=== PATIENT | male | born 1980 | race Caucasian/White ===

== ENCOUNTER → 2018-08-16 | Outpatient (CLI) | payer BC | LOC: LABPAT 10:59 | PROVIDERS: ATTEND Orthopaedic Surgery | DX: Z01.812 Encounter for preprocedural laboratory examination (principal) | CPT/HCPCS: 86850; 86900; 86901; 87070 ==

== ENCOUNTER 2018-08-23 07:30 | Inpatient (IN) | payer BC ==
[2018-08-18 09:29] VITALS: BMI 43.4
--- NOTE | 2018-08-22 17:05 | HP ---
HISTORY AND PHYSICAL SURGERY: 08/23/2018 Edgard Ulloa is a 37-year-old patient seen with symptomatic left hip osteoarthritis. After treatment options were discussed with him, he elected to proceed with left total hip arthroplasty. Consent regarding the procedure was obtained. Medical clearance was provided by Dr. Bojorquez. PAST MEDICAL HISTORY: Hypertension, zie-lxrpobw-vekoypqly diabetes. PAST SURGICAL HISTORY: Left hip arthroscopy. MEDICATIONS: Glipizide, lisinopril, ibuprofen. ALLERGIES: None. SOCIAL HISTORY: The patient denies current tobacco use. PHYSICAL EXAMINATION: Evaluation of the left hip: He has very limited range of motion with severe pain. Positive hip impingement sign. Straight leg raise negative. Distal neurovascular exam is intact. RADIOGRAPHS: Radiographs of the left hip reveal severe osteoarthritic changes. IMPRESSION: 1. Left hip osteoarthritis. 2. Hypertension. 3. Tzr-nunixrd-vdkcvptxy diabetes. PLAN: Direct anterior left total hip arthroplasty. MMODL / IJN: [id number] /
[~2018-08-23 07:30] MED LIST: ACETAMINOPHEN TAB 500 MG TAB PO ONE; DEXAMETHASONE SOD PHOSPHATE 10 MG/ML 1 ML VIAL IV ONE; HYDROmorphone 1 MG/ML 1 ML SYRINGE IVP PRN; MELOXICAM 7.5 MG TAB PO ONE; MIDAZOLAM 2 MG/2 ML VIAL IV PRN; ONDANSETRON 4 MG/2 ML VIAL IVP ONE; SCOPOLAMINE 1.5MG/72HR PATCH TRANSDERM ONE; TRANEXAMIC ACID 1,000 MG in SODIUM CHLORIDE 0.9% 50 ML IVPB ONE
[2018-08-23 08:49] LABS: Glucose,Whole Blood 109 mg/dL (75-99)
[2018-08-23] MEDS ORDERED: LIDOCAINE 1% 20 ML VIAL (10MG/ML) FOR IV START INTRADERMA ONE (08:50)
[2018-08-23] MEDS: LACTATED RINGERS 1,000 ML IV SCH ×2 (08:50→14:47)
[2018-08-23] MEDS ORDERED: ROPIVACAINE 246.25 MG, EPINEPHrine 0.5 MG, KETOROLAC 30 MG, cloNIDine HCL/PF 80 MCG, WA... MISCELLANE ONE ×5 (09:43)
[2018-08-23] MEDS ORDERED: SODIUM CHLORIDE 0.9% 100 ML BAG ONE (09:51)
[2018-08-23] MEDS ORDERED: fentaNYL (PF) 50 MCG/ML 2 ML AMP ONE (09:51)
[2018-08-23] MEDS ORDERED: TRANEXAMIC ACID 1,000 MG/10 ML VIAL ONE (09:51)
[2018-08-23] MEDS ORDERED: MIDAZOLAM 2 MG/2 ML VIAL ONE (09:51)
[2018-08-23] MEDS ORDERED: ceFAZolin 3,000 MG in SODIUM CHLORIDE 0.9% IRRIGATIO 3,000 ML IRRIGATION ONE (10:35)
[2018-08-23] MEDS ORDERED: LACTATED RINGERS 1,000 ML IV ONE (10:58)
[2018-08-23] MEDS ORDERED: HYDROmorphone 1 MG/ML 1 ML SYRINGE IVP PRN ×2 (12:13)
[2018-08-23] MEDS ORDERED: ONDANSETRON 4 MG/2 ML VIAL IVP PRN (12:13)
[2018-08-23] MEDS ORDERED: traMADol 50 MG TAB PO PRN (12:13)
[2018-08-23] MEDS ORDERED: HYDROcodone/APAP 7.5-325MG 1 EACH TAB PO PRN (12:13)
[2018-08-23] MEDS ORDERED: NALOXONE 0.4 MG/ML 1 ML VIAL IV PRN (12:13)
--- NOTE | 2018-08-23 12:13 | P.OP ---
Date of Procedure: 08/23/18 Preoperative Diagnosis: Left hip osteoarthritis Postoperative Diagnosis: Left hip osteoarthritis Procedure(s) Performed: Direct anterior left total hip arthroplasty Implants: 1. Depuy Corail KA size 12 with collar press-fit femoral stem 2. Depuy pinnacle 60 mm press-fit acetabular shell 3. Depuy pinnacle polyethylene acetabular liner 60 mm OD 36 mm ID neutral 4. Biolox delta ceramic femoral head 36 mm +5 Anesthesia: local, spinal Surgeon: Bruce Baltazar Rn Lactation Consultant #1: Jerman Valenzuela Estimated Blood Loss (ml): 300 Pathology: other (Femoral head) Condition: stable Disposition: PACU Indications for Procedure: 37-year-old patient seen with symptomatic left hip osteoarthritis. After treatment options were discussed, he elected to proceed with total hip arthroplasty. Operative Findings: See description of procedure Description of Procedure: The patient was taken to the operative suite. Patient underwent a spinal anesthetic by the department of anesthesia. Patient was then transferred to the Stanley table. Patient was given preoperative IV antibiotics and TXA. Both lower extremities were placed in standard leg spars. The hip was then prepped and draped in the normal sterile orthopedic fashion. A standard anterior incision was made beginning 3 cm lateral and 1 cm distal to the ASIS extending 10 cm. Dissection was then carried down through the subcutaneous soft tissues down to the fascia overlying the tensor fascia jhon. An incision was now made through the fascia. Careful dissection was taken down exposing the tensor fascia jhon muscle. A Cobra retractor was now placed along the medial femoral neck and a second one along the lateral femoral neck. The venous circumflex vessels were now identified, cauterized and clipped. We identified the anterior hip capsule. An incision was made through the hip capsule along the lateral border. I performed a partial anterior capsulectomy. Retractors were now placed around the femoral neck itself. A femoral neck cut was now made with a sagittal saw. It was completed with an osteotome at the lateral neck area. The femoral head was now removed without difficulty. The extremity was now rotated to 45 of external rotation. It was locked in position. Residual labrum was now debrided out. Serial reaming was performed of the acetabulum while Donn GRANADOS assisted holding an anterior retractor for exposure. Once we reached the appropriate size and a trial was position and fit nicely. The appropriate size was now chosen opened and made available. It was introduced into the acetabulum without difficulty. The C-arm/fluoroscopy was now brought into the operative field. We made sure we had a true AP pelvic view. We now under direct C-arm/fluoroscopy introduced into the acetabular component with appropriate version and inclination. I held the cup in appropriate position well Donn GRANADOS used a mallet to seat the acetabular component. I noted the component now to be well seated and stable. Acetabular cup introducer was removed. The C-arm was pulled back. An appropriate liner was introduced and clicked into position. It was felt to be stable. At this point retractors were removed. The extremity was now placed into 120 external rotation with no traction. The leg was now dropped to the ground and adducted. Appropriate retractors were now positioned along the proximal femur. We also placed our femoral look into position. Additional capsular releasing was performed to gain access to the proximal femur. We now used a box osteotome. A canal finder was now utilized. Serial broaching was now performed with the assistance of Donn GRANADOS tapping the broaches down with a mallet while held the broach in appropriate rotation and position. This was done until we reached the appropriate size with good overall rotational stability. Appropriate calcar planing was performed. A trial head/neck was placed into position. The hip was now reduced. The C-arm/fluoroscopy was brought back into the operative field. A spot film was obtained of the nonoperative hip. A spot film was obtained of the trial components. Overlays were performed, we noted good overall alignment and positioning for determining leg length. The C- arm/fluoroscopy was pulled back. Retractors were repositioned and the hip was dislocated. The leg was again taken down to the ground and adducted. Appropriate retractors were repositioned as well as the femoral hook. All trial components were removed. The femoral implant was opened along with the femoral head. The femoral implant was introduced on the appropriate handle into our pre-broached area. I held the component position well Donn GRANADOS used a mallet to seat the femoral component. The femoral component was now noted to be well seated and stable.. The femoral head was introduced with good positioning and fixation noted. Retractors were now removed. The hip was now reduced. There appeared be good positioning of the hip confirmed on intraoperative fluoroscopy. Spot films were obtained to document this. A second gram of TXA was given. The deep and superficial soft tissues were infiltrated with local analgesic. Bipolar cautery had been utilized intermittently through the procedure for hemostasis. The wound was irrigated copiously with pulse lavage mechanical irrigation. The fascia was repaired with Vicryl suture. The subcutaneous soft tissues were repaired in layers with Vicryl suture. The skin was approximated with pernio/Dermabond. Sterile dressings were applied. Patient was then awakened, transferred to a bed and taken to recovery in stable condition. Donn GRANADOS assisted with the complex procedure.
[2018-08-23 13:35] LABS: Glucose,Whole Blood 162 mg/dL (75-99)
--- NOTE | 2018-08-23 14:18 | P.CONS ---
History of Present Illness - Reason for Consult Consult date: 08/23/18 Medical management Requesting physician: Bruce Baltazar - Chief Complaint Left hip total arthroplasty - History of Present Illness This is a 37-year-old male, patient of Dr. Bojorquez. He has a known past medical history of diabetes, hypertension, arthritis or arthritis and acid reflux. Patient presents to the hospital for an elective left total hip arthroplasty. He tolerated surgery well no complications reported. Estimated blood loss 300 mL. We will been consulted for medical management. Patient lying in bed comfortably. Denies any chest pain or shortness of breath. Denies any nausea or vomiting. Denies any bowel movement changes or urinary symptoms. Denies any fever or chills or sweats. He is complaining of some left hip pain and is due for pain medication. Review of Systems Please refer to HPI otherwise unremarkable Past Medical History Past Medical History: Diabetes Mellitus, GERD/Reflux, Hyperlipidemia, Osteoarthritis (OA), Sleep Apnea/CPAP/BIPAP Additional Past Medical History / Comment(s): Hx. 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, doesn't use anything for sleep apnea History of Any Multi-Drug Resistant Organisms: None Reported Past Surgical History: Orthopedic Surgery Additional Past Surgical History / Comment(s): vasectomy ,rt achilles tendon repair, arthroscopy left hip Past Anesthesia/Blood Transfusion Reactions: Motion Sickness Additional Past Anesthesia/Blood Transfusion Reaction / Comm: no hx blood transfusion Smoking Status: Former smoker - Past Family History Mother Family Medical History: No Reported History Father Family Medical History: No Reported History Medications and Allergies Home Medications Medication Instructions Recorded Confirmed Type DULoxetine HCL [Cymbalta] 20 mg PO HS 08/18/18 08/23/18 History Ibuprofen [Motrin] 800 mg PO Q6H PRN 08/18/18 08/23/18 History Insulin Degludec/Liraglutide 26 unit SQ QAM 08/18/18 08/23/18 History [Xultophy 100 Unit-3.6MG/ml Pen] Lisinopril [Zestril] 10 mg PO DAILY 08/18/18 08/23/18 History Omeprazole [PriLOSEC] 20 mg PO AC-BRKFST PRN 08/18/18 08/23/18 History Simvastatin [Zocor] 20 mg PO HS 08/18/18 08/23/18 History glipiZIDE [Glucotrol] 5 mg PO AC-BID 08/18/18 08/23/18 History Allergies Allergy/AdvReac Type Severity Reaction Status Date / Time No Known Allergies Allergy Verified 08/23/18 13:26 Physical Exam Vitals: Vital Signs Temp Pulse Pulse Resp BP Pulse Ox 08/23/18 13:30 62 18 119/60 94 L 08/23/18 13:15 57 L 16 118/59 98 08/23/18 13:00 62 18 114/69 94 L 08/23/18 12:45 70 18 115/62 93 L 08/23/18 12:32 97.7 F 63 18 125/67 97 08/23/18 08:29 97.4 F L 71 16 127/74 98 Intake and Output 08/22/18 08/23/18 08/23/18 22:59 06:59 14:59 Intake Total 1601 Output Total 300 Balance 1301 Intake: IV 1601 Output: Estimated Blood Loss 300 Head normocephalic Neck supple Lungs clear to auscultation bilaterally no wheezing or crackles Heart regular rate and rhythm S1-S2, no rub or gallop Abdomen is soft nontender nondistended positive bowel sounds no hepatosplenomegaly Extremities no edema. Left hip dressing clean dry and intact. Ice pack in place BRADY hose and SCDs Neuro alert and orientated to 3 Results Labs: Abnormal Lab Results - Last 24 Hours (Table) 08/23/18 08/23/18 Range/Units 08:45 13:32 POC Glucose (mg/dL) 109 H 162 H (75-99) mg/dL Assessment and Plan Assessment: 1. Left hip osteoarthritis status post direct anterior left total hip arthroplasty. Estimated bolus 300 mL. Continue pain medication for PE protocol. Patient currently on Lovenox for DVT prophylaxis 2. Diabetes mellitus type 2: Continue glipizide. Resume xultophy. This is a nonformulary medication. Patient can't bring from home. We'll add NovoLog sliding scale coverage. Check A1c 3. Essential hypertension: Continue lisinopril 10 mg daily hold for systolic blood pressure less than 120 4. GERD: Continue Pepcid Thank you for this consultation. We will continue to follow along during patient's hospitalization. Check routine labs in the morning CBC and CMP Time with Patient: Greater than 30 (Greater than 60% of the total time spent in counseling and coordination of care.I performed an examination of the patient and discussed their management with the physician Stockroom Keeper. I have reviewed the Physician Stockroom Keeper's notes and agree with the documented findings and plan of care)
[2018-08-23] MEDS: HYDROcodone/APAP 7.5-325MG 1 EACH TAB PO PRN ×2 (14:20→21:04)
[2018-08-23] MEDS: HYDROmorphone 1 MG/ML 1 ML SYRINGE IVP PRN ×2 (15:07→18:36)
--- NOTE | 2018-08-23 15:45 | XR ---
EXAMINATION TYPE: XR Hip Limited LT, FL guidance operating room DATE OF EXAM: 08/23/2018 FINDINGS: Single frontal view showing appearance after left hip total arthroplasty. FLUOROSCOPY Fluoroscopy time of 38 seconds was used during anterior left hip replacement. 1 image/s document/s t he procedure. IMPRESSION: Intraoperative fluoroscopy as above.
[2018-08-23 17:32] LABS: Glucose,Whole Blood 181 mg/dL (75-99)
[2018-08-23] MEDS: INSULIN ASPART 100 UNIT/ML 1 ML 10 ML VIAL SQ SCH (17:43)
[2018-08-23] MEDS: glipiZIDE 5 MG TAB PO SCH (17:43)
[2018-08-23] MEDS ORDERED: ATORVASTATIN 10 MG TAB PO SCH (21:00)
[2018-08-23] MEDS ORDERED: DULoxetine HCL 20 MG CAPSULE.DR PO SCH (21:00)
[2018-08-24] MEDS: INSULIN ASPART 100 UNIT/ML 1 ML 10 ML VIAL SQ SCH ×3 (00:40→12:11)
[2018-08-24 00:45] LABS: Glucose,Whole Blood 122 mg/dL (75-99)
[2018-08-24] MEDS: LACTATED RINGERS 1,000 ML IV SCH ×3 (03:48→12:11)
[2018-08-24] MEDS: HYDROcodone/APAP 7.5-325MG 1 EACH TAB PO PRN ×3 (03:50→14:13)
[2018-08-24 07:43] LABS: Glucose,Whole Blood 140 mg/dL (75-99)
[2018-08-24] MEDS: glipiZIDE 5 MG TAB PO SCH (08:18)
[2018-08-24] MEDS ORDERED: [UNRECOGNIZED DRUG - OTHER] SQ SCH (09:00)
[2018-08-24] MEDS ORDERED: MELOXICAM 7.5 MG TAB PO SCH (09:00)
[2018-08-24] MEDS ORDERED: LIRAGLUTIDE SQ SCH (09:00)
[2018-08-24] MEDS ORDERED: LISINOPRIL 10 MG TAB PO SCH (09:00)
[2018-08-24] MEDS ORDERED: ENOXAPARIN 40 MG/0.4 ML SYRINGE SQ SCH (09:00)
[2018-08-24] MEDS ORDERED: FAMOTIDINE 20 MG TAB PO SCH (09:00)
[2018-08-24] MEDS ORDERED: INSULIN DEGLUDEC SQ SCH (09:00)
[2018-08-24 09:40] VITALS: TEMP 98
[2018-08-24 09:42] VITALS: BP 131/60; PULSE 76; RESP 16
[2018-08-24 10:30] LABS: Basophils % (A) 0 %; Eosinophils # (A) 0.1 k/uL (0-0.7); Eosinophils % (A) 1 %; HCT 36.5 % (39.0-53.0); HGB 12.3 gm/dL (13.0-17.5); Lymphocytes # (A) 1.6 k/uL (1.0-4.8); Lymphocytes % (A) 16 %; MCH 30.4 pg (25.0-35.0); MCHC 33.6 g/dL (31.0-37.0); MCV 90.4 fL (80.0-100.0); Mean Platelet Volume 6.7; Monocytes # (A) 0.7 k/uL (0-1.0); Monocytes % (A) 7 %; Neutrophils # (A) 7.3 k/uL (1.3-7.7); Neutrophils % (A) 74 %; Platelet Count 287 k/uL (150-450); RBC 4.04 m/uL (4.30-5.90); RDW 12.3 % (11.5-15.5); WBC 9.9 k/uL (3.8-10.6)
[2018-08-24 10:39] LABS: ALT 49 U/L (21-72); AST 34 U/L (17-59); Albumin 3.3 g/dL (3.5-5.0); Alkaline Phosphatase 26 U/L (38-126); Anion Gap 7 mmol/L; Blood Urea Nitrogen 12 mg/dL (9-20); Calcium 8.3 mg/dL (8.4-10.2); Carbon Dioxide 25 mmol/L (22-30); Chloride 105 mmol/L (98-107); Glucose 113 mg/dL (74-99); Potassium 4.3 mmol/L (3.5-5.1); Sodium 137 mmol/L (137-145); Total Bilirubin 0.6 mg/dL (0.2-1.3); Total Protein 5.8 g/dL (6.3-8.2)
[2018-08-24 12:03] LABS: Glucose,Whole Blood 109 mg/dL (75-99)
--- NOTE | 2018-08-24 12:33 | P.PN ---
Subjective Progress Note Date: 08/24/18 Principal diagnosis: Status post left total hip arthroplasty Patient is seen today resting in his hospital bed, he appears comfortable. Patient's ambulate well with physical therapy. He denies any chest pain or shortness breath. Objective - Vital Signs Vital signs: Vital Signs Temp 98.0 F 08/24/18 07:10 Pulse 76 08/24/18 07:10 Resp 16 08/24/18 07:10 BP 131/60 08/24/18 07:10 Pulse Ox 94 L 08/24/18 07:10 Intake & Output 08/23/18 08/24/18 08/24/18 18:59 06:59 18:59 Intake Total 1601 800 600 Output Total 300 900 Balance 1301 -100 600 Weight 145.15 kg Intake: IV 1601 Intake, IV Titration 800 Amount Lactated Ringers 1,000 ml 800 @ 80 mls/hr IV .[id number] YOON Rx#:[id number] Oral 600 Output: Urine 900 Estimated Blood Loss 300 Other: Voiding Method Toilet Toilet # Voids 2 - Exam Left lower extremity: Incision is clean, dry, and intact. The exofin fusion tape is in good condition. There is minimal soft tissue swelling and ecchymosis surrounding the medial and lateral aspects of the incision. Calf is soft, no tenderness with palpation. Plantar flexion, dorsiflexion, EHL, FHL are intact. Sensory exam to light touch throughout the extremity is intact, dorsal pedis pulses 2+. - Labs CBC & Chem 7: 08/24/18 07:47 08/24/18 07:47 Labs: Abnormal Lab Results - Last 24 Hours (Table) 08/23/18 08/23/18 08/24/18 Range/Units 13:32 17:28 00:33 RBC (4.30-5.90) m/uL Hgb (13.0-17.5) gm/dL Hct (39.0-53.0) % Glucose (74-99) mg/dL POC Glucose (mg/dL) 162 H 181 H 122 H (75-99) mg/dL Calcium (8.4-10.2) mg/dL Alkaline Phosphatase (38-126) U/L Total Protein (6.3-8.2) g/dL Albumin (3.5-5.0) g/dL 08/24/18 08/24/18 08/24/18 Range/Units 07:41 07:47 07:47 RBC 4.04 L (4.30-5.90) m/uL Hgb 12.3 L (13.0-17.5) gm/dL Hct 36.5 L (39.0-53.0) % Glucose 113 H (74-99) mg/dL POC Glucose (mg/dL) 140 H (75-99) mg/dL Calcium 8.3 L (8.4-10.2) mg/dL Alkaline Phosphatase 26 L (38-126) U/L Total Protein 5.8 L (6.3-8.2) g/dL Albumin 3.3 L (3.5-5.0) g/dL 08/24/18 Range/Units 12:01 RBC (4.30-5.90) m/uL Hgb (13.0-17.5) gm/dL Hct (39.0-53.0) % Glucose (74-99) mg/dL POC Glucose (mg/dL) 109 H (75-99) mg/dL Calcium (8.4-10.2) mg/dL Alkaline Phosphatase (38-126) U/L Total Protein (6.3-8.2) g/dL Albumin (3.5-5.0) g/dL Assessment and Plan Plan: Assessment: Postoperative day #1 status post left total hip arthroplasty Plan: Pain control, we'll discharge home on oral medications GI and DVT prophylaxis, aspirin 81 mg twice a day for 1 month Home physical therapy and nursing after discharge Wound care was discussed the patient at bedside Medical recommendations Discharge planning: Plan for discharge home today Time with Patient: Less than 30
--- NOTE | 2018-08-24 12:37 | P.DS ---
Providers Date of admission: 08/23/18 08:07 Expected date of discharge: 08/24/18 Attending physician: Bruce Baltazar Consults: 08/23/18 12:13 Consult Physician Routine Consulting Provider: Pablo Bojorquez Consult Reason/Comments: Medical management Do you want consulting provider notified?: Yes 08/23/18 12:57 Consult Physician Routine Consulting Provider: Paulina Bower Consult Reason/Comments: medical management Do you want consulting provider notified?: Yes Primary care physician: Nikki Bojorquez [facility] Course: Date of admission: 08/23/2018 Date of discharge: 08/24/2018 Admission diagnosis: Status post left total hip arthroplasty Discharge diagnosis: Same Attending physician: Dr. Baltazar Surgical procedures: Left total hip arthroplasty Brief history: Patient is a 37-year-old male with a history of progressive primary left hip osteoarthritis. At this point patient has failed conservative treatment measures and has opted to proceed with a elective left total hip arthroplasty. Hospital course: Details of patient's surgery can be found in operative report. Patient tolerated the procedure well and was subsequently transported to orthopedic floor. Patient's orthopeidc and medical care was provided daily. Patient had daily laboratory tests performed for evaluation of overall blood counts. Patient had daily physical therapy to include strengthening range of motion as well as education with walker ambulation. Patient was treated with Lovenox for their postoperative DVT prophylaxis during their inpatient stay. Patient was noted to have a relatively uneventful postoperative course. Patient reported satisfactory pain control with oral pain medications by postoperative day 0. Patient showed satisfactory progress with physical therapy. Patient moved steadily through the program and had no difficulty meeting the goals by postoperative day 1. Given patient's otherwise satisfactory course and having met physical therapy goals, plan is to discharge patient home on postoperative day 1. Discharge condition/disposition: Patient will be discharged home in stable condition. Discharge medications: Instructions are given on resumption of patient's normal daily medications per primary care recommendation, in addition patient will be prescribed [place] 7.5 mg/325 mg, tramadol 50 mg, Colace 100 mg, aspirin 81 mg. Discharge instructions: 1. Wound care and infection precautions, keep incision dry and covered while showering, no lotions, creams, moisturizers. No soaking, tubs, pools, hottubs. Do not scrub over the incision. 2. Weight-bear as tolerated with walker / cane until follow-up. 3. Ice and elevate when necessary. Do not exceed 20 minutes per hour with ice pack. 4. Utilize compression sleeve until seen at first follow up appointment. 5. Visiting nursing care. 6. Home physical therapy. 7. Pain meds and anticoagulants per prescription. 8. Pain medication has potential to cause constipation. Increase oral fluid and fiber intake. Contact primary care provider if you have not had a bowel movement within 48 hours after discharge 9. No anti-inflammatory medication until discussed at first post operative visit, this including Motrin, Aleve, Mobic, Diclofenac. 10. Follow up in office at 2 weeks postop with Donn Valenzuela PA-C 11. Follow up with your primary care doctor 7-10 days after discharge. 12. Contact [facility] with any questions, . Procedures: Left total hip arthroplasty Patient Condition at Discharge: Good Plan - Discharge Summary Discharge Rx Participant: No New Discharge Prescriptions: New Aspirin [Adult Low Dose Aspirin EC] 81 mg PO BID #60 tablet. Docusate [Colace] 100 mg PO DAILY #30 capsule HYDROcodone/APAP 7.5-325MG [[place] 7.5] 1 - 2 each PO Q6HR PRN #40 tab PRN Reason: Pain traMADol HCl [Ultram] 50 mg PO Q6H PRN #28 tab PRN Reason: Pain No Action Omeprazole [PriLOSEC] 20 mg PO AC-BRKFST PRN PRN Reason: Heartburn glipiZIDE [Glucotrol] 5 mg PO AC-BID Simvastatin [Zocor] 20 mg PO HS Lisinopril [Zestril] 10 mg PO DAILY DULoxetine HCL [Cymbalta] 20 mg PO HS Insulin Degludec/Liraglutide [Xultophy 100 Unit-3.6MG/ml Pen] 26 unit SQ QAM Ibuprofen [Motrin] 800 mg PO Q6H PRN PRN Reason: Pain Discharge Medication List DULoxetine HCL [Cymbalta] 20 mg PO HS 08/18/18 [History] Ibuprofen [Motrin] 800 mg PO Q6H PRN 08/18/18 [History] Insulin Degludec/Liraglutide [Xultophy 100 Unit-3.6MG/ml Pen] 26 unit SQ QAM [History] Lisinopril [Zestril] 10 mg PO DAILY 08/18/18 [History] Omeprazole [PriLOSEC] 20 mg PO AC-BRKFST PRN 08/18/18 [History] Simvastatin [Zocor] 20 mg PO HS 08/18/18 [History] glipiZIDE [Glucotrol] 5 mg PO AC-BID 08/18/18 [History] Aspirin [Adult Low Dose Aspirin EC] 81 mg PO BID #60 tablet.dr 08/24/18 [Rx] Docusate [Colace] 100 mg PO DAILY #30 capsule 08/24/18 [Rx] HYDROcodone/APAP 7.5-325MG [[place] 7.5] 1 - 2 each PO Q6HR PRN #40 tab 08/24/18 [ Rx] traMADol HCl [Ultram] 50 mg PO Q6H PRN #28 tab 08/24/18 [Rx] Follow up Appointment(s)/Referral(s): Nikki Bojorquez DO [Primary Care Provider] - 1 Week [facility], [NON-STAFF] - Jerman Valenzuela PAC [PHYSICIAN INTERNET MANAGER] - 09/08/18 1:50 pm Activity/Diet/Wound Care/Special Instructions: Orthopedic Discharge Instructions: 1. Wound care and infection precautions, keep incision dry and covered while showering, no lotions, creams, moisturizers. No soaking, pools, hot tubs. Do not scrub over incision. 2. Weight-bear as tolerated with walker / cane until follow-up. 3. Ice and elevate when necessary. Do not exceed 20 minutes per hour with ice pack. 4. Utilize compression sleeve until seen at first follow up appointment. 5. Pain meds and anticoagulants per prescription. 6. Pain medication has potential to cause constipation. Increase oral fluid and fiber intake. Contact primary care provider if you have not had a bowel movement within 48 hours after discharge. 7. No anti-inflammatory medication until discussed at first post operative visit, this including Motrin, Aleve, Mobic, Diclofenac. 8. Follow up in office at 2 weeks postop with Donn Valenzuela PA-C 9. Follow up with your primary care doctor 7-10 days after discharge. 10. Contact [facility] with any questions, . Discharge Disposition: HOME WITH HOME HEALTH SERVICES
--- NOTE | 2018-08-24 12:42 | P.PN ---
Subjective Progress Note Date: 08/24/18 This is a 37-year-old male, patient of Dr. Bojorquez. He has a known past medical history of diabetes, hypertension, arthritis or arthritis and acid reflux. Patient presents to the hospital for an elective left total hip arthroplasty. He tolerated surgery well no complications reported. Estimated blood loss 300 mL. We will been consulted for medical management. Patient lying in bed comfortably. Denies any chest pain or shortness of breath. Denies any nausea or vomiting. Denies any bowel movement changes or urinary symptoms. Denies any fever or chills or sweats. He is complaining of some left hip pain and is due for pain medication. 08/24/2018 patient's pain is controlled. He has been up and ambulating. They' re anticipating discharge later this afternoon. Denies any chest pain or shortness breath. Denies any nausea or vomiting. Denies any bowel movement changes or urinary symptoms. Objective - Vital Signs Vital signs: Vital Signs Temp 98.0 F 08/24/18 07:10 Pulse 76 08/24/18 07:10 Resp 16 08/24/18 07:10 BP 131/60 08/24/18 07:10 Pulse Ox 94 L 08/24/18 07:10 Intake & Output 08/23/18 08/24/18 08/24/18 18:59 06:59 18:59 Intake Total 1601 800 600 Output Total 300 900 Balance 1301 -100 600 Weight 145.15 kg Intake: IV 1601 Intake, IV Titration 800 Amount Lactated Ringers 1,000 ml 800 @ 80 mls/hr IV .[id number] [facility] Rx#:[id number] Oral 600 Output: Urine 900 Estimated Blood Loss 300 Other: Voiding Method Toilet Toilet # Voids 2 - Exam Head normocephalic Neck supple Lungs clear to auscultation bilaterally no wheezing or crackles Heart regular rate and rhythm S1-S2, no rub or gallop Abdomen is soft nontender nondistended positive bowel sounds no hepatosplenomegaly Extremities no edema Neuro alert and orientated to 3 - Labs CBC & Chem 7: 08/24/18 07:47 08/24/18 07:47 Labs: Abnormal Lab Results - Last 24 Hours (Table) 08/23/18 08/23/18 08/24/18 Range/Units 13:32 17:28 00:33 RBC (4.30-5.90) m/uL Hgb (13.0-17.5) gm/dL Hct (39.0-53.0) % Glucose (74-99) mg/dL POC Glucose (mg/dL) 162 H 181 H 122 H (75-99) mg/dL Calcium (8.4-10.2) mg/dL Alkaline Phosphatase (38-126) U/L Total Protein (6.3-8.2) g/dL Albumin (3.5-5.0) g/dL 08/24/18 08/24/18 08/24/18 Range/Units 07:41 07:47 07:47 RBC 4.04 L (4.30-5.90) m/uL Hgb 12.3 L (13.0-17.5) gm/dL Hct 36.5 L (39.0-53.0) % Glucose 113 H (74-99) mg/dL POC Glucose (mg/dL) 140 H (75-99) mg/dL Calcium 8.3 L (8.4-10.2) mg/dL Alkaline Phosphatase 26 L (38-126) U/L Total Protein 5.8 L (6.3-8.2) g/dL Albumin 3.3 L (3.5-5.0) g/dL 08/24/18 Range/Units 12:01 RBC (4.30-5.90) m/uL Hgb (13.0-17.5) gm/dL Hct (39.0-53.0) % Glucose (74-99) mg/dL POC Glucose (mg/dL) 109 H (75-99) mg/dL Calcium (8.4-10.2) mg/dL Alkaline Phosphatase (38-126) U/L Total Protein (6.3-8.2) g/dL Albumin (3.5-5.0) g/dL Assessment and Plan Assessment: 1. Left hip osteoarthritis status post direct anterior left total hip arthroplasty. Estimated bolus 300 mL. Continue pain medication per orthopedics. Patient currently on Lovenox for DVT prophylaxis 2. Diabetes mellitus type 2: Continue glipizide. Resume xultophy. This is a nonformulary medication. Patient can't bring from home. We'll add NovoLog sliding scale coverage. Check A1c 3. Essential hypertension: Continue lisinopril 10 mg daily hold for systolic blood pressure less than 120 4. GERD: Continue Pepcid Patient's medication and lab results have been reviewed. Patient is medically stable for discharge when cleared by orthopedics. We'll have him follow up with his PCP, Dr. Bojorquez in 1 week I performed an examination of the patient and discussed their management with the physician Cotton Ginner Helper. I have reviewed the Physician Cotton Ginner Helper's notes and agree with the documented findings and plan of care
[2018-08-24 21:23] LABS: Hemoglobin A1C 6.2 % (4.0-6.0)
== END 2018-08-24 15:10 | disposition home health service (06) | DRG 470 ==
LOC: 2ORMAIN 08:07 → 4SSUR 12:32
PROVIDERS: ADMIT Orthopaedic Surgery; ATTEND Orthopaedic Surgery
PROC: 0SRB04A Replacement of Left Hip Joint with Ceramic on Polyethylene Synthetic Substitute, Uncemented, Open Approach (ICD-10-PCS; principal; 2018-08-23 09:55)
DX: M16.12 Unilateral primary osteoarthritis, left hip (principal); Z68.41 Body mass index [BMI] 40.0-44.9, adult; E66.01 Morbid (severe) obesity due to excess calories; I10 Essential (primary) hypertension; E11.9 Type 2 diabetes mellitus without complications; K21.9 Gastro-esophageal reflux disease without esophagitis; E78.1 Pure hyperglyceridemia; E78.5 Hyperlipidemia, unspecified; G47.30 Sleep apnea, unspecified; Z79.4 Long term (current) use of insulin; Z79.899 Other long term (current) drug therapy; Z99.89 Dependence on other enabling machines and devices; Z86.69 Personal history of other diseases of the nervous system and sense organs; Z87.891 Personal history of nicotine dependence
CPT/HCPCS: 73501; 80053; 83036; 85025; 86850; 86900; 86901; 88300

== ENCOUNTER → 2019-05-03 | Outpatient (CLI) | payer BC ==
--- NOTE | 2019-05-03 10:29 | US ---
EXAMINATION TYPE: US venous doppler duplex LE LT DATE OF EXAM: 05/03/2019 10:11 AM COMPARISON: NONE CLINICAL HISTORY: M79.605 Pain in Left leg. Pain in calf. SIDE PERFORMED: Left TECHNIQUE: The lower extremity deep venous system is examined utilizing real time linear array sonog ever with graded compression, doppler sonography and color-flow sonography. VESSELS IMAGED: External Iliac Vein (EIV) Common Femoral Vein Deep Femoral Vein Greater Saphenous Vein * Femoral Vein Popliteal Vein Small Saphenous Vein * Proximal Calf Veins (* superficial vessels) Grayscale, color doppler, spectral doppler imaging performed of the deep veins of the left lower ext remity. There is normal flow, compressibility, vascular waveforms. Left Leg: Negative for DVT Small elongated area of fluid seen posterior calf area of pain. IMPRESSION: 1. No sonographic evidence of deep venous thrombosis within the left lower extremity. 2. Two images provided in the area of patient's pain of the left calf demonstrate an avascular elonga gisele fluid collection. Considerations are for hematoma, seroma, along dated popliteal cyst, or less li teresa solid mass. This could be further evaluated with MRI if clinically indicated.
== END | disposition home or self-care (01) ==
LOC: RADUSWWP 09:38
PROVIDERS: ATTEND Thoracic Surgery (Cardiothoracic Vascular Surgery)
DX: M79.662 Pain in left lower leg (principal)